=== PATIENT | female | born 2000 | race Caucasian/White ===

== ENCOUNTER 2025-04-06 21:12 | Emergency (ER) | payer OTHER ==
[2025-04-06 21:27] VITALS: BP 101/59; PULSE 99; RESP 17; TEMP 98.1; BMI 24.0
[2025-04-06] MEDS ORDERED: ONDANSETRON *ODT* 4 MG TABLET ONE (21:51)
[2025-04-06] MEDS: ONDANSETRON *ODT* 4 MG TABLET SL ONE (21:55)
== END 2025-04-06 21:57 | disposition home or self-care (01) ==
LOC: JERFT 21:12
DX: R11.2 Nausea with vomiting, unspecified (principal)
CPT/HCPCS: 99283-25; Q0162